=== PATIENT | female | born 1995 | race Caucasian/White ===

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

== ENCOUNTER 2017-03-13 15:14 | Emergency (ER) | END 2017-03-13 15:45 | disposition home or self-care (01) ==

== ENCOUNTER 2017-08-23 17:41 | Emergency (ER) | END 2017-08-23 21:11 | disposition home or self-care (01) ==

== ENCOUNTER 2017-08-28 20:33 | Emergency (ER) | END 2017-08-28 23:17 | disposition home or self-care (01) ==